=== PATIENT | female | born 1975 | race Two or more races ===

== ENCOUNTER 2024-08-14 13:14 | Emergency (ER) | payer BC, MEDICAID ==
[~2024-08-14] VITALS: Ht 149.9 cm; Wt 52.2 kg
[2024-08-14] MEDS: KETOROLAC TROMETHAMINE 15 MG/ML VIAL IV ONE (14:30)
[2024-08-14] MEDS: ACETAMINOPHEN 325 MG TABLET PO ONE (14:30)
[2024-08-14] MEDS: IV NS 0.9% 1,000 ML BAG IV ONE (14:30)
[2024-08-14 14:51] LABS: BASOPHILS # (AUTO) 0.1 K/uL (0.0-0.2); BASOPHILS % (AUTO) 1.1 % (0.0-2.0); EOSINOPHILS # (AUTO) 0.1 K/uL (0.0-0.7); EOSINOPHILS % (AUTO) 0.9 % (0.0-6.0); HEMATOCRIT 39 % (33-45); HEMOGLOBIN 12.7 g/dL (11.5-14.8); LYMPHOCYTES # (AUTO) 2.2 K/uL (0.8-4.8); LYMPHOCYTES % (AUTO) 35.6 % (20.0-44.0); MEAN CORPUSCULAR HEMOGLOBIN 28 PG (26.0-33.0); MEAN CORPUSCULAR HGB CONC 32 g/dl (31.0-36.0); MEAN CORPUSCULAR VOLUME 88 fL (82-100); MONOCYTES # (AUTO) 0.5 K/uL (0.1-1.30); MONOCYTES % (AUTO) 7.8 % (2.0-12.0); NEUTROPHILS # (AUTO) 3.4 K/uL (1.8-8.9); NEUTROPHILS % (AUTO) 54.6 % (43.0-81.0); PLATELET COUNT (AUTO) 187 K/uL (150-450); RED BLOOD CELL COUNT(AUTO) 4.51 MIL/uL (4.0-5.2); RED CELL DISTRIBUTION WIDTH 13.9 % (11.5-15.0); WHITE BLOOD COUNT (AUTO) 6.2 K/uL (4.3-11.0)
[2024-08-14] MEDS ORDERED: ACETAMINOPHEN 325 MG TABLET ONE (14:53)
[2024-08-14] MEDS ORDERED: KETOROLAC TROMETHAMINE 15 MG/ML VIAL ONE (14:53)
[2024-08-14 15:00] LABS: CALCIUM, SERUM 9.5 mg/dL (8.5-10.1); CREATININE 0.6 mg/dL (0.6-1.3); POTASSIUM 3.9 mmol/L (3.5-5.1)
[2024-08-14 15:07] LABS: ALBUMIN 3.9 g/dL (3.4-5.0); BILIRUBIN,TOTAL 1.6 mg/dL (0.2-1.0); TOTAL PROTEIN, SERUM 8.3 g/dL (6.4-8.2)
[2024-08-14 15:49] LABS: APPEARANCE,URINE CLEAR (CLEAR); BILIRUBIN,URINE NEGATIVE (NEGATIVE); BLOOD, URINE NEGATIVE Ery/uL (NEGATIVE); COLOR,URINE YELLOW (YELLOW); KETONES,URINE NEGATIVE (NEGATIVE); LEUKOCYTE ESTERASE ,URINE NEGATIVE (NEGATIVE); NITRITE, URINE NEGATIVE (NEGATIVE); PROTEIN,URINE NEGATIVE (NEGATIVE); UGLUCOSE NEGATIVE (NEGATIVE); UROBILINOGEN,URINE 0.2 EU/dL (0.2)
[2024-08-14 16:13] VITALS: BP 118/64; TEMP 98.1; O2SAT 99
== END 2024-08-14 16:14 | disposition home or self-care (01) ==
LOC: ER 13:19
DX: M54.50 Low back pain, unspecified (principal); M54.10 Radiculopathy, site unspecified; R20.2 Paresthesia of skin; Z60.2 Problems related to living alone; Z20.822 Contact with and (suspected) exposure to COVID-19
CPT/HCPCS: 99283; 96374; 96361; 87426; 87804 ×2; 85025; 82550; 87086; 81003; 36415; 80053; J7030; J1885

== ENCOUNTER 2025-01-23 10:37 | Emergency (ER) | payer BC, MEDICAID ==
[~2025-01-23] VITALS: Ht 160 cm; Wt 49.9 kg
[2025-01-23 11:08] VITALS: BP 143/89; TEMP 98; O2SAT 98
[2025-01-23] MEDS ORDERED: MECL-159 PO (11:34)
== END 2025-01-23 11:49 | disposition home or self-care (01) ==
LOC: ER 10:40
DX: H61.23 Impacted cerumen, bilateral (principal); R42 Dizziness and giddiness; Z60.2 Problems related to living alone